=== PATIENT | male | born 1960 | race Caucasian/White ===

== ENCOUNTER 2023-06-07 06:56 | Day surgery (SDC) | payer MEDICARE, OTHER ==
[~2023-06-07] VITALS: Ht 172.7 cm; Wt 113.4 kg
[~2023-06-07 06:56] MED LIST: IODIXANOL 320MG/ML 100 ML IV ONE
[2023-06-07] MEDS ORDERED: LIDOCAINE HCL/MPF 1% 30 ML VIAL IJ ONE (06:57)
[2023-06-07 07:39] LABS: CALCIUM, SERUM 7.4 mg/dL (8.5-10.1); POTASSIUM 5.5 mmol/L (3.5-5.1)
[2023-06-07 07:56] VITALS: BP 116/56; TEMP 98
[2023-06-07 07:59] LABS: CREATININE 10.2 mg/dL (0.6-1.3)
[2023-06-07 08:35] VITALS: BP 110/74; TEMP 98
== END 2023-06-07 08:48 | disposition home or self-care (01) ==
LOC: CATHLAB 06:56
PROVIDERS: ATTEND Surgery Vascular Surgery
DX: N18.6 End stage renal disease (principal); I87.1 Compression of vein; J90 Pleural effusion, not elsewhere classified; I70.90 Unspecified atherosclerosis; T82.898A Other specified complication of vascular prosthetic devices, implants and grafts, initial encounter; Y82.8 Other medical devices associated with adverse incidents
CPT/HCPCS: 36902; 71045; 80048; 36415; 36907; 75825; J1644; C1725 ×2; J3490; Q9967; C1769; C1894